=== PATIENT | female | born 1965 | race Caucasian/White ===

== ENCOUNTER 2020-07-30 13:22 | Inpatient (IN) | payer BC, MEDICARE, OTHER ==
[~2020-07-30] VITALS: Ht 167.6 cm; Wt 122.5 kg
[~2020-07-30 13:22] MED LIST: ASMANEX HFA13 G2 INH; BENTYL 20MG TAB20 MG PO; COZAAR25 MG PO; CYMBALTA60 MG PO; DILTIAZEM 24HR240 M1 PO; DRISDOL1250 MCG PO; HYDROCODON-ACE1 EAC2 PO; IBU800 MG PO; IBUPROFEN800 MG PO; LINZESS72 MCG PO; MIRALAX17 GM PO; NEXIUM40 MG PO; PHENERGAN 25 MG25 M1 PO; PHYSICIANS1000 MCG/1 IM; RESTORIL30 MG PO; SINGULAIR10 MG PO; WELLBUTRIN SR150 MG PO; ZOFRAN 4 MG TAB4 MG PO
[2020-07-30 14:36] LABS: HEMOGLOBIN 14.7 gm/dl (12.3-15.3); RED BLOOD COUNT 5.12 M/UL (4.00-5.10); WHITE BLOOD COUNT 3.2 K/UL (4.5-11.0)
[2020-07-30 15:13] LABS: BUN/CREATININE RATIO 15 (0-10)
[2020-07-31 01:45] LABS: HEMOGLOBIN 14.5 gm/dl (12.3-15.3); RED BLOOD COUNT 5.11 M/UL (4.00-5.10); WHITE BLOOD COUNT 2.7 K/UL (4.5-11.0)
[2020-07-31 02:16] LABS: BUN/CREATININE RATIO 20 (0-10)
[2020-07-31] MEDS ORDERED: ULTRAM50 MG PO (07:07)
[2020-07-31] MEDS ORDERED: REMERON15 MG PO (07:07)
[2020-07-31] MEDS ORDERED: AZELASTINE137 MCG/0. (07:09)
[2020-07-31] MEDS ORDERED: ROBAXIN-750750 MG PO (07:11)
[2020-07-31] MEDS ORDERED: PSEUDOEPHEDRIN120 MG PO (07:14)
[2020-08-01 06:51] LABS: BUN/CREATININE RATIO 29 (0-10)
[2020-08-01 16:01] LABS: HEMOGLOBIN 14.6 gm/dl (12.3-15.3); RED BLOOD COUNT 5.09 M/UL (4.00-5.10)
[2020-08-01 16:48] LABS: BUN/CREATININE RATIO 33 (0-10)
--- NOTE | 2020-08-01 23:41 | NUR ---
PT HAD ORDERS TO BE TRANSFERRED TO PCU UPON MY ARRIVAL TO THE FLOOR. APPROX. 1912: CONTACTED HOUSE TO SEE ABOUT OPEN BED. HOUSE STATED THAT THEY DIDN'T KNOW ABOUT IT, BUT THEY WOULD WORK ON GETTING ONE. APPROX. 2028: REPORT WAS CALLED TO ANA LUISA IN PCU. PT WAS BEING TRANSFERRED TO ROOM 6122. APPROX. 2044: RESPIRATORY, MELISSA STORE ADMINISTRATOR, AND I TRANSFERRED PT TO PCU TO ROOM 6122. PT WAS ON 40L @ 61% ON AIRVO. PT WAS STABLE. NO DISTRESS NOTED.
[2020-08-02 03:27] LABS: HEMOGLOBIN 13.6 gm/dl (12.3-15.3); RED BLOOD COUNT 4.9 M/UL (4.00-5.10); WHITE BLOOD COUNT 5.5 K/UL (4.5-11.0)
[2020-08-02 03:57] LABS: BUN/CREATININE RATIO 34 (0-10)
[2020-08-03 03:45] LABS: HEMOGLOBIN 13.3 gm/dl (12.3-15.3); RED BLOOD COUNT 4.73 M/UL (4.00-5.10); WHITE BLOOD COUNT 4.8 K/UL (4.5-11.0)
[2020-08-04 03:15] LABS: HEMOGLOBIN 13.3 gm/dl (12.3-15.3); RED BLOOD COUNT 4.79 M/UL (4.00-5.10); WHITE BLOOD COUNT 4.5 K/UL (4.5-11.0)
[2020-08-06 03:38] LABS: BUN/CREATININE RATIO 32 (0-10)
[2020-08-07 03:44] LABS: HEMOGLOBIN 13.8 gm/dl (12.3-15.3); RED BLOOD COUNT 4.91 M/UL (4.00-5.10); WHITE BLOOD COUNT 7.8 K/UL (4.5-11.0)
[2020-08-07 04:03] LABS: BUN/CREATININE RATIO 39 (0-10)
[2020-08-08 04:03] LABS: BUN/CREATININE RATIO 35 (0-10)
[2020-08-09 02:30] LABS: BUN/CREATININE RATIO 34 (0-10)
[2020-08-09 15:18] LABS: HEMOGLOBIN 13.4 gm/dl (12.3-15.3); RED BLOOD COUNT 4.77 M/UL (4.00-5.10)
[2020-08-10 02:35] LABS: HEMOGLOBIN 12.6 gm/dl (12.3-15.3); RED BLOOD COUNT 4.48 M/UL (4.00-5.10)
[2020-08-10 02:54] LABS: BUN/CREATININE RATIO 32 (0-10)
[2020-08-11 03:28] LABS: RED BLOOD COUNT 4.58 M/UL (4.00-5.10)
[2020-08-11 03:31] LABS: WHITE BLOOD COUNT 13.8 K/UL (4.5-11.0)
[2020-08-11 03:49] LABS: BUN/CREATININE RATIO 33 (0-10)
[2020-08-12 02:33] LABS: HEMOGLOBIN 12.7 gm/dl (12.3-15.3); RED BLOOD COUNT 4.54 M/UL (4.00-5.10); WHITE BLOOD COUNT 12.9 K/UL (4.5-11.0)
[2020-08-12 03:10] LABS: BUN/CREATININE RATIO 26 (0-10)
--- NOTE | 2020-08-12 09:20 | NUR ---
PATIENT NOW ON AIRVO AT 84% FIO2 AND 60L. PATIENT WAS SATTING IN THE LOW 70'S ON HIFLO NASAL CANNULA AND RT WAS NOTIFIED TO COME ASSIST. THERE IS NO PULMONARY CONSULT AND SO THEY HAVE BEEN CONSULTED. THE QUALITY CONTROL TECH RAW MATERIALS WILL BE HERE TO SEE PATIENT SHORTLY. PATIENT GETS UP TO BEDSIDE COMMODE AND DESATS QUICKLY. AT THIS TIME SHE IS IN BED ALERT AND ORIENTED, IN NO DISTRESS AT THIS TIME.
[2020-08-13 05:36] LABS: HEMOGLOBIN 12.8 gm/dl (12.3-15.3); RED BLOOD COUNT 4.48 M/UL (4.00-5.10); WHITE BLOOD COUNT 9.4 K/UL (4.5-11.0)
[2020-08-13 05:54] LABS: BUN/CREATININE RATIO 27 (0-10)
[2020-08-14 05:16] LABS: HEMOGLOBIN 13.2 gm/dl (12.3-15.3); RED BLOOD COUNT 4.61 M/UL (4.00-5.10)
[2020-08-14 05:17] LABS: WHITE BLOOD COUNT 15.4 K/UL (4.5-11.0)
[2020-08-14 05:35] LABS: BUN/CREATININE RATIO 30 (0-10)
--- NOTE | 2020-08-14 17:00 | NUR ---
08/14/20 0700- NOTIFIED DR. MATTA OF PT GETTING INTUBATED A PRONED THROUGH THE NIGHT. HE WAS GOING TO INIATE TRANSFER FOR PT TO RECIEVE ECMO. 08-PT WAS ACCEPTED BY [facility] IN [place] AND WAS AWAITING BED ASSIGNMENT. WAS CALLED AND NOTIFIED AND GAVE PHONE CONSENT FOR TRANSPORT TO TWO RNS. 899- DR. BURROWS NOTIFIED OF NEED FOR CENTRAL LINE PLACEMENT AND WANTED TO WAIT UNTIL [place] EITHER PRIOR TO TRANSFER OR AT 1530 TODAY. 09- CALLED DR. VERNON ABOUT NEED FOR CENTRAL LINE AND THAT PT WAS PRONE. HE SAID HE WAS UNABLE TO DO IT IN PRONE POSITION AND TO LET HIM KNOW WHEN BACK IN [place]. 1200- BED ASSIGNMENT WAS MADE AT [facility]. DR. MATTA WAS WANTING TO GET TRANSPORT BY AIR. 1209- CALL PHI TO ARRANGE TRANSPORT AND WAS DECLINED DUE TO WEATHER. 1213- CALL [facility] AND WAS DECLINED DUE TO WEATHER. 1225- [facility] CALLED BACK AND SAID FIXED WING ALSO DECLINED DUE TO WEATHER AND THAT THEY HAD REACHED OUT TO AIR [facility] AND THEY DIANA DECLINED DUE TO WEATHER. 1240- CALLED COLLECTION TECHNICIAN TO UPDATE AND POSSIBLY GET FLIGHT CREW TO RIDE WITH ALS CREW. 1241- [facility] CALLED BACK ABOUT FIXED WING AND DECLINED DUE TO WEATHER. 1253- ATTEMPT AT CALLING REPORT. RN SAID HE WOULD CALL ME BACK THAT HE WAS TRYING TO GET A PT OUT. 1352- [facility] CALLED AND SAID FIXED WING WAS STILL UNAVAILABLE. 1400- AMBULANCE ARRIVED. 1435- PT WAS RETURNED TO [place] FROM PRONE POSITION. 1440- CALLED DR. BURROWS FOR CENTRAL LINE TO BE PLACED. HE SAID TO CALL THE SURGEON ENVIRONMENTAL SERVICES MANAGER. 1443- CALLED DR. VERNON TO PLACE CENTRAL LINE. HE SAID HE WAS ON HIS WAY. 1500-DR. VERNON ARRIVED TO PLACE CENTRAL LINE. PT WAS HERE TO GET HER BELONGINGS AND SIGNED CONSENT FOR CENTRAL LINE. 1530- CENTRAL LINE PLACED IN RIGHT JUGULAR BY DR. VERNON. AND XRAY OBTAINED. SAID CENTRAL LINE WAS OK TO USE. 1541- ASKED DR. MASON TO REVIEW IMAGES OF CHEST XRAY TO VERIFY TUBE PLACMENT. HE SAID IT LOOKED THE SAME BEFORE. PT WAS THEN LOADED ON EMS STRECTER AND TRANSPORTED TO [facility] BY 1600.
[2020-09-24] MEDS ORDERED: LASIX40 MG PO (11:20)
[2020-10-01] MEDS ORDERED: DOCUSATE SODIU250 MG PO (11:12)
[2020-10-03] MEDS ORDERED: ALPRAZOLAM OD0.25 MG PO (11:04)
== END 2020-08-14 16:15 | disposition short-term general hospital (02) | DRG 871 ==
LOC: ER1 13:22 → MED SURG 4 15:35 → CDU 15:35 → PROG CARE 15:35 → MED SURG 4 16:59 → PROG CARE 08-01 20:47 → 2 EAST 08-12 16:08
PROVIDERS: Family Medicine; Internal Medicine; Physician Assistant Medical; ADMIT Internal Medicine
PROC: XW033E5 Introduction of Remdesivir Anti-infective into Peripheral Vein, Percutaneous Approach, New Technology Group 5 (ICD-10-PCS; 2020-07-30)
PROC: 8E0ZXY6 Isolation (ICD-10-PCS; 2020-07-30)
PROC: XW13325 Transfusion of Convalescent Plasma (Nonautologous) into Peripheral Vein, Percutaneous Approach, New Technology Group 5 (ICD-10-PCS; 2020-07-31)
PROC: 5A09457 Assistance with Respiratory Ventilation, 24-96 Consecutive Hours, Continuous Positive Airway Pressure (ICD-10-PCS; 2020-08-09)
PROC: 5A1935Z Respiratory Ventilation, Less than 24 Consecutive Hours (ICD-10-PCS; 2020-08-13)
PROC: 0BH17EZ Insertion of Endotracheal Airway into Trachea, Via Natural or Artificial Opening (ICD-10-PCS; 2020-08-13)
PROC: 05HM33Z Insertion of Infusion Device into Right Internal Jugular Vein, Percutaneous Approach (ICD-10-PCS; principal; 2020-08-14)
PROC: B543ZZA Ultrasonography of Right Jugular Veins, Guidance (ICD-10-PCS; 2020-08-14)
PROC: B24BZZZ Ultrasonography of Heart with Aorta (ICD-10-PCS; 2020-08-14)
DX: A41.89 Other specified sepsis (principal); U07.1 COVID-19; J12.82 Pneumonia due to coronavirus disease 2019; J80 Acute respiratory distress syndrome; Z68.41 Body mass index [BMI] 40.0-44.9, adult; B37.0 Candidal stomatitis; G47.33 Obstructive sleep apnea (adult) (pediatric); E66.01 Morbid (severe) obesity due to excess calories; I10 Essential (primary) hypertension; M79.7 Fibromyalgia; E53.8 Deficiency of other specified B group vitamins; F41.9 Anxiety disorder, unspecified; F32.9 Major depressive disorder, single episode, unspecified; J45.909 Unspecified asthma, uncomplicated; G89.29 Other chronic pain; M54.9 Dorsalgia, unspecified; K59.00 Constipation, unspecified; D72.819 Decreased white blood cell count, unspecified; K58.9 Irritable bowel syndrome, unspecified; R79.1 Abnormal coagulation profile; G47.00 Insomnia, unspecified; Z90.49 Acquired absence of other specified parts of digestive tract; Z88.5 Allergy status to narcotic agent; Z82.49 Family history of ischemic heart disease and other diseases of the circulatory system; Z80.1 Family history of malignant neoplasm of trachea, bronchus and lung; Z83.3 Family history of diabetes mellitus; Z79.899 Other long term (current) drug therapy
CPT/HCPCS: ECHO; 31500; 36415; 36600; 71045; 71046; 80053; 82550; 82553; 82728; 82803; 83605; 83615; 83735; 83874; 83880; 84484; 85025; 85027; 85379; 85610; 86140; 86900; 86901; 86927; 87040; 93005; 93306; 94002; 94003; 94640; 94660; 94664; 94760; 96365; 96375; 97110; 97161; 97530; 97530-GP-CQ; 99285; J0456; J0696; J1100; J1205; J1650; J1940; J2060; J2185; J2405; J2704; J2930; J3010; J3420; J7030; J7050; Q9967; U0002

== ENCOUNTER 2020-10-06 01:00 | Inpatient (IN) | payer BC, MEDICARE, OTHER ==
[~2020-10-06] VITALS: Ht 167.6 cm; Wt 127.0 kg
[~2020-10-06 01:00] MED LIST changes: +ALPRAZOLAM OD0.25 MG PO; +AZELASTINE137 MCG/0.; +DOCUSATE SODIU250 MG PO; +LASIX40 MG PO; +PSEUDOEPHEDRIN120 MG PO; +REMERON15 MG PO; +ROBAXIN-750750 MG PO; +ULTRAM50 MG PO
[2020-10-06 01:26] LABS: HEMOGLOBIN 8.8 gm/dl (12.3-15.3); RED BLOOD COUNT 3.04 M/UL (4.00-5.10); WHITE BLOOD COUNT 12.6 K/UL (4.5-11.0)
[2020-10-06 01:46] LABS: BUN/CREATININE RATIO 27 (0-10)
[2020-10-07 02:39] LABS: BUN/CREATININE RATIO 34 (0-10)
[2020-10-07 02:46] LABS: HEMOGLOBIN 8.9 gm/dl (12.3-15.3); RED BLOOD COUNT 3.17 M/UL (4.00-5.10); WHITE BLOOD COUNT 11.7 K/UL (4.5-11.0)
--- NOTE | 2020-10-07 23:16 | NUR ---
PATIENT TRANSFERED TO [facility] VIA FLIGHT CREW AT 2135 PATIENT WAS STABLE AT THE TIME OF TRANSFER. VITALS WERE 112/100 (103) 90 02, 24 RR, 98.2 TEMP, 103 HR. PATIENT HAD FC THAT WAS INTACT, FLIGHT CREW PLACED PT ON NONREBREATHER. IV ACCESS: 22G IN RIGHT INNER WRIST AND 22G IN LEFT INNER WRIST.
== END 2020-10-07 21:35 | disposition short-term general hospital (02) | DRG 871 ==
LOC: ER1 01:00 → CDU 04:46 → PROG CARE 13:32
PROVIDERS: Emergency Medicine; Internal Medicine; ADMIT Internal Medicine
DX: A41.9 Sepsis, unspecified organism (principal); J15.6 Pneumonia due to other Gram-negative bacteria; J96.21 Acute and chronic respiratory failure with hypoxia; R65.20 Severe sepsis without septic shock; E66.01 Morbid (severe) obesity due to excess calories; G47.33 Obstructive sleep apnea (adult) (pediatric); J84.10 Pulmonary fibrosis, unspecified; I10 Essential (primary) hypertension; F41.9 Anxiety disorder, unspecified; F32.9 Major depressive disorder, single episode, unspecified; M79.7 Fibromyalgia; Z20.822 Contact with and (suspected) exposure to COVID-19; R00.0 Tachycardia, unspecified; D64.9 Anemia, unspecified; K58.9 Irritable bowel syndrome, unspecified; Z88.5 Allergy status to narcotic agent; Z88.8 Allergy status to other drugs, medicaments and biological substances; Z90.49 Acquired absence of other specified parts of digestive tract
CPT/HCPCS: 0240U; 36415; 36600; 71045; 80048; 80053; 82550; 82553; 82607; 82728; 82746; 82803; 82962; 83540; 83550; 83605; 83615; 83690; 83735; 83874; 83880; 84484; 85025; 85045; 85379; 85652; 86140; 87040; 87081; 93005; 94640; 94664; 94760; 96365; 96366; 96367; 96372; 96375; 99285; C9113; J1100; J1650; J1940; J1956; J2543; J2920; J3370; J7070; Q9967

== ENCOUNTER → 2020-11-02 | Outpatient (CLI) | payer BC, MEDICARE, OTHER | LOC: EXRD 10:54 | DX: R09.02 Hypoxemia (principal); R06.02 Shortness of breath; Z87.01 Personal history of pneumonia (recurrent) | CPT/HCPCS: 71046 ==

== ENCOUNTER → 2020-12-08 | Outpatient (CLI) | payer BC, MEDICARE, OTHER | LOC: EXRD 13:01 | DX: J18.9 Pneumonia, unspecified organism (principal); R06.02 Shortness of breath; R91.8 Other nonspecific abnormal finding of lung field | CPT/HCPCS: 71046 ==

== ENCOUNTER → 2020-12-29 | Outpatient (CLI) | payer BC, MEDICARE, OTHER | LOC: EXRD 14:27 | DX: J18.9 Pneumonia, unspecified organism (principal); J98.4 Other disorders of lung | CPT/HCPCS: 71046 ==

== ENCOUNTER → 2021-02-08 | Outpatient (CLI) | payer BC, MEDICARE | LOC: HEART 5 09:30 | DX: R00.2 Palpitations (principal) ==

== ENCOUNTER → 2021-02-17 | Outpatient (CLI) | payer BC, MEDICARE | LOC: HEART 5 08:45 | DX: R06.02 Shortness of breath (principal) | CPT/HCPCS: 94060; 94729 ==

== ENCOUNTER → 2021-06-09 | Outpatient (CLI) | payer BC, MEDICARE | LOC: EXRD 10:41 | DX: M25.561 Pain in right knee (principal) | CPT/HCPCS: 73564 ==

== ENCOUNTER → 2021-09-19 | Outpatient (CLI) | payer BC, MEDICARE | LOC: KOH-I 11:30 | DX: R13.10 Dysphagia, unspecified (principal) | CPT/HCPCS: 76536 ==

== ENCOUNTER → 2021-11-22 | Outpatient (CLI) | payer BC, MEDICARE | LOC: EXRD 13:48 | DX: R05.9 Cough, unspecified (principal); M54.50 Low back pain, unspecified; G89.29 Other chronic pain; R26.2 Difficulty in walking, not elsewhere classified; M54.2 Cervicalgia; M51.34 Other intervertebral disc degeneration, thoracic region; M51.36 Other intervertebral disc degeneration, lumbar region | CPT/HCPCS: 71046; 72040; 72070; 72100 ==

== ENCOUNTER → 2022-03-28 | Outpatient (CLI) | payer BC, MEDICARE | LOC: ECHO 11:55 | DX: Z53.9 Procedure and treatment not carried out, unspecified reason (principal) | CPT/HCPCS: ECHO; 78452; 93306; A9502; J2785 ==